=== PATIENT | female | born 1985 | race American Indian/Alaskan Native ===

== ENCOUNTER 2020-12-30 08:53 | Inpatient (IN) | payer BC, OTHER ==
[2020-12-30] MEDS ORDERED: AMPICILLIN/NS 2 GM/100 ML 2 GM/100 ML BAG IV SCH (10:00)
[2020-12-30] MEDS ORDERED: LACTATED RINGERS 1,000 ML ONE (10:27)
[2020-12-30] MEDS ORDERED: OXYTOCIN DRIP 30,000 MILLIUNITS/500 ML BAG IV ONE (10:28)
[2020-12-30] MEDS ORDERED: AMPICILLIN/NS 2 GM/100 ML 2 GM/100 ML BAG IV ONE (10:28)
[2020-12-30] MEDS ORDERED: OXYTOCIN 10 UNIT/1 ML INJ ONE (10:44)
--- NOTE | 2020-12-30 10:52 | History and Physical Report ---
History of Present Illness Date of examination: 12/30/20 Date of admission: 12/30/20 Chief complaint: Pt with c/o uc times several hours History of present illness: 35 y/o AA female presented to [facility] ob triage @ 38.2 wks as a walkin pt with c/o uc times several hours. Pt denied VB, LOF, and admited to active FM. She stated she initiated her pnc at [facility] at approx 8 wks. Pt reported an uncomplicated preg w/o any problems. She has a hx of vag deliveries and denied any hx of c/s. Medical hx includes a hx of gall bladder disease, depression and chlamydia. She is also a heavy smoker with a family hx of DM, cardiac disorders, stroke, and cancer. No records are available. GBS is unknown. Pt was admitted to L&D for delivery. Past History Past Medical History: other (gall bladder disease, depression) Past Surgical History: no surgical history [employer] History: chlamydia Family/Genetic History: diabetes, heart disease, stroke, cancer Social history: single, smoking - Obstetrical History Expected Date of Delivery: 01/11/21 Actual Gestation: 38 Week(s) 2 Day(s) : 6 Para: 4 Hx # Term Pregnancies: 4 Number of Pregnancies: 0 Spontaneous Abortions: 1 Number of Living Children: 4 Medications and Allergies Allergies Allergy/AdvReac Type Severity Reaction Status Date / Time erythromycin base Allergy Rash Verified 08/07/15 12:25 povidone-iodine Allergy Hives Verified 08/07/15 12:25 [From Betadine] soap [From Betadine] Allergy Hives Verified 08/07/15 12:25 Home Medications Medication Instructions Recorded Confirmed Last Taken Type Vit-Fe Fumar-FA [ 1 tab PO QDAY #90 tablet 08/07/15 Unknown Rx Vitamin] Active Meds: Active Medications Ampicillin Sodium (Ampicillin/Ns 2 Gm/100 Ml) 2 gm in 100 mls @ 100 mls/hr IV Q4H FUNMI; Protocol Review of Systems All systems: negative Eyes: deferred Ears, nose, mouth and throat: deferred Genitourinary: normal appearance Rectal Exam: deferred Psychiatric: depression - Vital Signs Vital signs: Vital Signs Pulse Pulse Ox 63 98 12/30/20 09:46 12/30/20 09:46 Temp Pulse Resp BP Pulse Ox 65 100 12/30/20 10:35 12/30/20 10:35 - Physical Exam Breasts: Positive: normal Abdomen: Positive: normal appearance, soft, normal bowel sounds Genitourinary (Female): Positive: normal external genitalia, normal perenium, other (several single bumps to thighs) Vulva: both: normal Vagina: Positive: normal moisture Uterus: Positive: enlarged, normal contour, other (gravid) Anus/Rectum: Positive: normal perianal skin Extremities: Positive: normal - Obstetrical FHR: auscultation normal, category 1 Uterine Contraction Monitor Mode: External Cervical Dilatation: 8 Cervical Effacement Percentage: 100 station: -1 Uterine Contraction Pattern: Regular Uterine Tone Measurement Phase: Resting Uterine Contraction Intensity: Strong/Firm Results All other labs normal. Assessment and Plan A: IUP@ 38.2 wks Walkin pt GBS unknown P: Admit to L&D Continuos monitoring GBS prophylaxis Obtain records from previous provider Anticipate
[2020-12-30] MEDS ORDERED: ePHEDrine SULFATE 50 MG/1 ML INJ IV PRN (11:02)
[2020-12-30] MEDS ORDERED: MINERAL OIL 30 ML ORAL LIQD PO PRN (11:02)
[2020-12-30] MEDS ORDERED: TERBUTALINE 1 MG/1 ML INJ SUB-Q PRN (11:02)
[2020-12-30] MEDS ORDERED: LANOLIN/ZINC/DIMETHICONE (LANSINOH) 7 GM TP PRN (11:11)
[2020-12-30] MEDS ORDERED: PROMETHAZINE 25 MG TAB PO PRN (11:11)
[2020-12-30] MEDS ORDERED: PROMETHAZINE 25 MG RECT SUPP PR PRN (11:11)
[2020-12-30] MEDS ORDERED: diphenhydrAMINE 25 MG CAP PO PRN (11:11)
[2020-12-30] MEDS ORDERED: MAGNESIUM HYDROXIDE (MOM) ORAL LIQD UDC PO PRN (11:11)
[2020-12-30] MEDS ORDERED: LACTATED RINGERS 1,000 ML IV SCH (11:15)
[2020-12-30] MEDS ORDERED: HYDROcodone/ACETAMINOPHEN 5-325 MG TAB PO ONE (11:43)
[2020-12-30] MEDS ORDERED: OXYTOCIN 10 UNIT/1 ML INJ IM ONE (11:49)
[2020-12-30 11:55] LABS: Hematocrit 45.2 % (30.3-42.9); Hemoglobin 15.5 gm/dl (10.1-14.3); Mean Corpuscular HGB Conc 34 % (30-34); Mean Corpuscular Volume 93 fl (79-97); Platelet Count 206 K/mm3 (140-440); Red Blood Count 4.87 M/mm3 (3.65-5.03)
--- NOTE | 2020-12-30 11:58 | Procedure Note ---
OB Delivery Note - Delivery Date of Delivery: 12/30/20 Surgeon: DREA DC Estimated blood loss: 200cc - Vaginal Delivery presentation: vertex Delivery position: OA Intrapartum events: meconium, precipitous labor- <3hr Delivery induction: none Delivery monitor: external FHT Route of delivery: Delivery placenta: spontaneous Delivery cord: 3 umbilical vessels Episiotomy: none Delivery laceration: none Anesthesia: none Delivery comments: Called to for delivery SVE 10/100%/+1 and pt was pushing. of a viable live male in OA position. Spontaneous delivery of head and shoulders. Infant was placed on mom's chest/abd for skin to skin bonding while JANN nurse dried and stimulated baby. Delayed cord clamping x 90 sec then cord was doubled clamped and cut. Infant was taken to warmer by JANN nurse for an assess. 8/9. Spontaneous delivery of an intact placenta with 3CV. Fundal was firm @ U2 with fundal massage and IM Pitocin. EBL 200cc. FW 2858 Gms. Mom and baby were left in stable condition with L&D nurse. - A at 1 minute: 8 at 5 minutes: 9 Gender: Male (FW 2858 Gms)
[2020-12-30] MEDS ORDERED: WITCH HAZEL/ GLYCERIN PAD TP PRN (12:00)
[2020-12-30] MEDS ORDERED: OXYTOCIN DRIP 30 UNITS/500 ML BAG IV SCH (12:00)
[2020-12-30] MEDS ORDERED: ONDANSETRON 4 MG/2 ML INJ IV PRN (12:00)
[2020-12-30] MEDS ORDERED: LIDOCAINE (2%) 20 MG/1 ML VIAL 20 ML MDV INFILTRATI ONE (12:02)
[2020-12-30] MEDS ORDERED: fentaNYL 100 MCG/2 ML INJ IV ONE (12:02)
[2020-12-30 12:34] LABS: Hepatitis C Virus Antibody Non-Reactive (NonReactive)
[2020-12-30] MEDS ORDERED: AMPICILLIN/NS 1 GM/50 ML 1 GM/50 ML BAG IV SCH (14:00)
[2020-12-30] MEDS: IBUPROFEN 600 MG TAB PO SCH ×2 (14:25→21:06)
[2020-12-30 23:59] LABS: Hematocrit 32.5 % (30.3-42.9); Hemoglobin 10.8 gm/dl (10.1-14.3)
[2020-12-31] MEDS: IBUPROFEN 600 MG TAB PO SCH ×4 (00:52→21:59)
[2020-12-31] MEDS ORDERED: PRENATAL VIT27-FE FUMARATE-FOLIC ACID VIT TAB PO SCH (10:00)
--- NOTE | 2020-12-31 11:29 | Discharge Summary ---
Providers - Providers Date of Admission: 12/30/20 10:59 Date of discharge: 01/01/21 Attending physician: LEIDA CARLIN Primary care physician: [employer] Hospitalization Reason for admission: active labor Delivery: Episiotomy: none Laceration: none Other procedures: none complications: none Discharge diagnosis: IUP at term delivered baby: male Hospital course: See admission H&P; OB delivery summary; and PP progress notes Condition at discharge: Good Disposition: DC-01 TO HOME OR SELFCARE - Discharge Diagnoses (1) Status post normal vaginal delivery Status: Acute (2) Anemia Status: Acute Qualifiers: Anemia type: other cause Other causes of anemia: acute posthemorrhagic Qualified Code(s): D62 - Acute posthemorrhagic anemia Comment: Asymptomatic Plan - Provider Discharge Summary Activity: routine, no sex for 6 weeks, no heavy lifting 4 weeks, no strenuous exercise Diet: other (Iron rich diet) Instructions: routine Additional instructions: [] Smoking cessation referral if applicable(refer to patient education folder for contact #) [] Refer to [facility] Booklet Call your doctor immediately for: * Fever > 100.5 * Heavy vaginal bleeding ( >1 pad per hour) * Severe persistent headache * Shortness of breath * Reddened, hot, painful area to leg or breast * Drainage or odor from incision. * Keep incision clean and dry at all times and follow doctor's instructions regarding bathing/showering - Follow up plan Follow up: PRIMARY CARE, [Primary Care Provider] - 6 Weeks
[2020-12-31 18:01] LABS: Amphetamine Screen,Urine Negative; Benzodiazepines Screen,Urine Negative; Cocaine Screen,Urine Negative; Methadone Screen,Urine Negative; Opiate Screen,Urine Negative
[2020-12-31 18:12] LABS: Cannabinoid Screen,Urine Positive
[2021-01-01] MEDS: IBUPROFEN 600 MG TAB PO SCH ×3 (04:41→12:44)
[2021-01-01 09:28] VITALS: BP 125/78
== END 2021-01-01 16:00 | disposition home or self-care (01) | DRG 806 ==
LOC: TRG 08:53 → APU 08:54 → TRG 10:30 → LD 10:56 → OB 14:00
PROVIDERS: ADMIT Obstetrics & Gynecology; ATTEND Obstetrics & Gynecology
PROC: 10E0XZZ Delivery of Products of Conception, External Approach (ICD-10-PCS; principal; 2020-12-30)
DX: O62.3 Precipitate labor (principal); D62 Acute posthemorrhagic anemia; Z37.0 Single live birth; O99.02 Anemia complicating childbirth; O77.0 Labor and delivery complicated by meconium in amniotic fluid; Z20.822 Contact with and (suspected) exposure to COVID-19; Z3A.38 38 weeks gestation of pregnancy; Z83.3 Family history of diabetes mellitus; Z82.3 Family history of stroke; Z80.9 Family history of malignant neoplasm, unspecified; Z82.49 Family history of ischemic heart disease and other diseases of the circulatory system
CPT/HCPCS: 36415; 80307; 85014; 85018; 85027; 86592; 86706; 86762; 86803; 86850; 86900; 86901; 87806; G0378; J0290; J2590; J7120; U0003